=== PATIENT | female | born 1985 | race Two or more races ===

== ENCOUNTER 2024-12-12 06:00 | Day surgery (SDC) | payer OTHER ==
[2024-12-12] MEDS ORDERED: POVIDONE-IODINE 118 ML BOTT TOP ONE (07:14)
[2024-12-12] MEDS ORDERED: CEFAZOLIN SODIUM 1,000 MG VIAL ONE (07:14)
[2024-12-12] MEDS ORDERED: OXYTOCIN 10 UNITS/ML VIAL ONE (07:53)
== END 2024-12-12 16:55 | disposition home or self-care (01) ==
LOC: CIR.AMB 06:00
PROVIDERS: ATTEND Specialist
DX: O02.1 Missed abortion (principal)